=== PATIENT | female | born 1995 | race Caucasian/White ===

== ENCOUNTER 2020-01-24 14:16 | Emergency (ER) | payer OTHER ==
[2020-01-24] MEDS ORDERED: Sodium Chloride 0.9% 1000 ML 1,000 ML IV STA (14:24)
[2020-01-24] MEDS ORDERED: Hydromorphone 1 mg/ml Ampule IV ONE (14:33)
[2020-01-24 14:44] LABS: Absolute Neutrophil Ct (ANC) 4.37 (1.4-6.9); BASOPHIL % 0.4 % (0.0-0.4); Basophil (Absolute #) 0.02 (0-0.4); Eosinophil % 1.2 % (0.00-5.0); Eosinophil (Absolute #) 0.07 (0-0.5); Hematocrit 35.1 % (35-47); Hemoglobin 11.4 gm/dl (12.0-16.0); Lymphocyte (Absolute #) 0.74 (1.0-4.6); Lymphocytes % 13.2 % (24.0-44.0); Mean Cell Volume 88.6 fl (78-100); Mean Corpuscular Hemoglobin 28.8 pg (26-32); Mean Corpuscular Hgb Concent. 32.5 g/dl (32-36); Mean Platelet Volume 10.6 fl (7.5-11.0); Monocyte (Absolute #) 0.41 (0.0-1.3); Monocytes % 7.3 % (0.0-12.0); Neutrophil % 77.9 % (36.0-66.0); Platelet Count 143 K/mm3 (150-450); Red Blood Count 3.96 M/mm3 (4.1-5.4); Red Cell Distribution Width 12.3 % (11.5-14.0); White Blood Count 5.6 K/mm3 (4.0-10.5)
[2020-01-24] MEDS ORDERED: Hydromorphone 1 mg/ml Ampule ONE (15:06)
[2020-01-24] MEDS ORDERED: Sodium Chloride 0.9% 1000 ML 1,000 ML ONE (15:06)
--- NOTE | 2020-01-24 15:25 | XRAY ---
Indication: Bleeding. Two-dimensional transvaginal early OB ultrasound performed. Comparison: None Uterus anteverted measuring 6.3 x 3.8 x 4.2 cm. No focal solid/cystic uterine mass. Endometrial stripe measures 1 cm. No endometrial cavity mass or fluid collection. Right ovary measures 4.0 x 1.8 x 3.5 cm and the left measures 1.6 x 2.3 x 1.8 cm. Normal follicular cysts and perfusion bilaterally. 2 cm left ovary dominant cysts. Very tiny cul-de-sac free fluid presumed physiologic from ruptured/leaking cyst. Impression: Negative for intrauterine/ectopic . Tiny physiologic cul-de-sac fluid and 2 cm dominant left ovary cyst.
[2020-01-24 15:34] LABS: ABO TYPING A; Antibody Screen NEGATIVE (NEGATIVE); RH TYPING NEGATIVE
[2020-01-24 16:09] LABS: Appearance SLIGHTLY CLOUDY (CLEAR); Bilirubin NEGATIVE (NEGATIVE); Blood NEGATIVE Ery/ul (0-5); Epithelial Cells RARE /HPF (FEW); Glucose NEGATIVE (NEGATIVE); Ketones NEGATIVE (NEGATIVE); Leukocyte Esterase NEGATIVE (NEGATIVE); Mucus SLIGHT /HPF (NEGATIVE); Nitrite NEGATIVE (NEGATIVE); Protein,Urine Dip NEGATIVE (Negative); RBC 0-2 /HPF (0-2); Specific Gravity 1.018 (1.005-1.025); Urobilinogen 4 mg/dL (0-1); WBC 0-2 /HPF (0-5)
[2020-01-24 16:55] LABS: Amphetamine,Urine NEGATIVE (NEGATIVE); Barbiturate,Urine NEGATIVE (NEGATIVE); Benzodiazepine,Urine NEGATIVE (NEGATIVE); Cocaine,Urine NEGATIVE (NEGATIVE); Methadone,Urine NEGATIVE (NEGATIVE); Opiate,Urine POSITIVE (NEGATIVE); PCP,Urine NEGATIVE (NEGATIVE); THC,Urine POSITIVE (NEGATIVE)
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
[2020-01-24 18:27] VITALS: BP 129/67; PULSE 90
[2020-01-24 19:55] VITALS: O2SAT 100
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
--- NOTE | 2020-01-25 08:35 | XRAY ---
Indication: Abdomen pain. Heavy vaginal bleeding. Multiple contiguous axial images obtained through the abdomen and pelvis using 80 cc Isovue 370 contrast only. Comparison: None Lung bases are clear. Heart is not enlarged. Noncontrasted stomach and bowel loops appear nonobstructed. Appendix not seen. There is marked diffuse colonic fecal debris throughout including rectum. No free fluid/air. Remaining liver, gallbladder, pancreas, spleen, adrenal glands, kidneys, ureters, bladder, uterus, and aorta appear unremarkable. No pathologic retroperitoneal lymphadenopathy. Osseous structures intact. Impression: 1. Marked diffuse fecal stasis. 2. Remaining CT abdomen/pelvis with contrast exam is negative.
== END 2020-01-24 18:29 | disposition home or self-care (01) ==
LOC: ED 14:16
DX: N93.8 Other specified abnormal uterine and vaginal bleeding (principal)
CPT/HCPCS: 36000; 36415; 74177; 76817; 80307; 81001; 81025; 85025; 86850; 86900; 86901; 87077; 87086; 87186; 87491; 87591; 96360; 96374; 99284; J1170